=== PATIENT | female | born 1970 | race Caucasian/White ===

== ENCOUNTER 2016-10-20 15:53 | Emergency (ER) | payer BC ==
[2016-10-20 16:08] VITALS: BP 89/45
--- NOTE | 2016-10-20 16:32 | UC ---
Complaint Female HPI - HPI Summary HPI Summary: FREQUENT URINATION AND DISCOMFORT FOR THREE DAYS, TODAY DEVELOPED BLOOD IN URINE. NO FEVER. NO BACK PAIN. - History Of Current Complaint Chief Complaint: UCGI Stated Complaint: UTI COMPLAINT Time Seen by Provider: 10/20/16 16:05 Hx Obtained From: Patient Hx Last Menstrual Period: ended 10/18/16 Onset/Duration: Gradual Onset, Lasting Days, Worse Since - TODAY Severity Initially: Mild Severity Currently: Severe Character: Dull, Burning, Cramping Aggravating Factor(s): Urination - Risk Factors Ovarian Torsion Risk Factor: Negative - Allergies/Home Medications Allergies/Adverse Reactions: Allergies Allergy/AdvReac Type Severity Reaction Status Date / Time Sulfamethoxazole Allergy Severe "MUSCLE Verified 10/20/16 16:27 w/Trimethoprim SEIZURE [From Bactrim] REACTION" Penicillins Allergy Intermediate Hives Unverified 10/20/16 16:09 Home Medications: Home Medications [place]-3 Fatty Acids [Fish Oil] 10/20/16 [History Confirmed 10/20/16] PMH/Surg Hx/FS Hx/Imm Hx Previously Healthy: Yes - Surgical History Surgical History: Yes Surgery Procedure, Year, and Place: foot fracture. tubal ligation x2 - Family History Known Family History: Negative: Renal Disease - Social History Occupation: Employed Full-time Lives: With Family Alcohol Use: None Substance Use Type: None Smoking Status (MU): Never Smoked Tobacco Review of Systems Constitutional: Negative Skin: Negative Eyes: Negative ENT: Negative Respiratory: Negative Cardiovascular: Negative Gastrointestinal: Negative Genitourinary: Dysuria, Hematuria, Frequency, Urgency Motor: Negative Neurovascular: Negative Musculoskeletal: Negative Neurological: Negative Psychological: Negative All Other Systems Reviewed And Are Negative: Yes Physical Exam Triage Information Reviewed: Yes Appearance: Well-Appearing, Well-Nourished, Pain Distress Vital Signs: Initial Vital Signs Temp 97.4 F 10/20/16 16:05 Pulse 61 10/20/16 16:05 Resp 12 10/20/16 16:05 BP 89/45 10/20/16 16:05 Pulse Ox 98 10/20/16 16:05 Vital Signs Reviewed: Yes Eye Exam: Normal ENT Exam: Normal ENT: Positive: Normal ENT inspection, TMs normal Dental Exam: Normal Neck exam: Normal Respiratory Exam: Normal Respiratory: Positive: Chest non-tender, Lungs clear, Normal breath sounds Cardiovascular Exam: Normal Cardiovascular: Positive: RRR, No Murmur Abdominal Exam: Normal Abdomen Description: Positive: Nontender, No Organomegaly. Negative: CVA Tenderness (R), CVA Tenderness (L) Musculoskeletal Exam: Normal Neurological Exam: Normal Psychological Exam: Normal Skin Exam: Normal Complaint Female Dx - Differential Dx/Diagnosis Differential Diagnosis/HQI/PQRI: Cervicitis, Urinary Tract Infection Provider Diagnoses: HEMATURIA; URINARY TRACT INFECTION Discharge - Discharge Plan Condition: Stable Disposition: HOME Prescriptions: Ciprofloxacin TAB* [Cipro 500 MG TAB*] 500 mg PO BID #10 tab Phenazopyridine TAB* [Pyridium 100 mg TAB*] 100 mg PO TID #15 tab Patient Education Materials: Ciprofloxacin (By mouth), Urinary Tract Infection in Women (ED) Referrals: Piedad OCAMPO,Raji Rodriguez [Primary Care Provider] -
== END 2016-10-20 16:30 | disposition home or self-care (01) ==
LOC: UCEAST 15:53
DX: R31.9 Hematuria, unspecified (principal); N39.0 Urinary tract infection, site not specified
CPT/HCPCS: 81003; 87077; 87086; 87186; 99212; G0463

== ENCOUNTER 2017-11-14 05:02 | Emergency (ER) | payer BC ==
[2017-11-14] MEDS ORDERED: Phenazopyridine TAB* 100 MG PO ONE (05:28)
--- NOTE | 2017-11-14 05:36 | ED ---
GI/ HPI - HPI Summary HPI Summary: This is taiwo Reyes documenting for attending Priscila Bell MD. This patient is a 47 year old F presenting to [facility] with a chief complaint of hematuria since this morning. The patient rates the pain 3/10 in severity. Patient reports increased urgency and dysuria. Patient denies pain, n/v/d, back pain, and fever. - History of Current Complaint Chief Complaint: EDUrogenitalProblems Time Seen by Provider: 11/14/17 05:22 Stated Complaint: POSS UTI Hx Obtained From: Patient Hx Last Menstrual Period: ended 10/18/16 Onset/Duration: Still Present Timing: Constant Severity: Moderate Current Severity: Moderate Pain Intensity: 3 Location of Pain: Diffuse Associated Signs and Symptoms: Positive: Hematuria - Allergy/Home Medications Allergies/Adverse Reactions: Allergies Allergy/AdvReac Type Severity Reaction Status Date / Time cyclobenzaprine Allergy Muscle Ache Verified 11/14/17 05:09 Penicillins Allergy Hives Verified 11/14/17 05:09 sulfamethoxazole Allergy Muscle Ache Verified 11/14/17 05:09 [From Bactrim] tramadol Allergy Muscle Ache Verified 11/14/17 05:09 trimethoprim [From Bactrim] Allergy Muscle Ache Verified 11/14/17 05:09 PMH/Surg Hx/FS Hx/Imm Hx Endocrine/Hematology History: Denies: Hx Diabetes, Hx Thyroid Disease Cardiovascular History: Denies: Hx Hypertension Respiratory History: Denies: Hx Asthma, Hx Chronic Obstructive Pulmonary Disease (COPD) GI History: Denies: Hx Ulcer - Surgical History Surgery Procedure, Year, and Place: foot fracture. tubal ligation x2 Infectious Disease History: No Infectious Disease History: Denies: Hx Clostridium Difficile, Hx Hepatitis, Hx Human Immunodeficiency Virus (HIV), Hx of Known/Suspected MRSA, Hx Shingles, Hx Tuberculosis, Traveled Outside the [place] in Last 30 Days - Family History Known Family History: Negative: Renal Disease - Social History Alcohol Use: None Substance Use Type: Reports: None Smoking Status (MU): Never Smoked Tobacco Review of Systems Negative: Fever Negative: Vomiting, Diarrhea, Nausea Positive: dysuria, hematuria. Negative: flank pain All Other Systems Reviewed And Are Negative: Yes Physical Exam - Summary Physical Exam Summary: VITAL SIGNS: Reviewed. GENERAL: Patient is a well-developed and nourished femalewho is lying comfortable in the stretcher. Patient is not in any acute respiratory distress. HEAD AND FACE: No signs of trauma. No ecchymosis, hematomas or skull depressions. No sinus tenderness. EYES: PERRLA, EOMI x 2, No injected conjunctiva, no nystagmus. EARS: Hearing grossly intact. Ear canals and tympanic membranes are within normal limits. MOUTH: Oropharynx within normal limits. NECK: Supple, trachea is midline, no adenopathy, no JVD, no carotid bruit, no c- spine tenderness, neck with full ROM. CHEST: Symmetric, no tenderness at palpation LUNGS: Clear to auscultation bilaterally. No wheezing or crackles. CVS: Regular rate and rhythm, S1 and S2 present, no murmurs or gallops appreciated. ABDOMEN: Soft, TTP in the suprapubic region. No signs of distention. No rebound no guarding, and no masses palpated. Bowel sounds are normal. EXTREMITIES: FROM in all major joints, no edema, no cyanosis or clubbing. NEURO: Alert and oriented x 3. No acute neurological deficits. Speech is normal and follows commands. SKIN: Dry and warm Triage Information Reviewed: Yes Vital Signs On Initial Exam: Initial Vitals Temp Pulse Resp BP Pulse Ox 97.0 F 59 18 121/47 99 11/14/17 05:05 11/14/17 05:05 11/14/17 05:05 11/14/17 05:05 11/14/17 05:05 Vital Signs Reviewed: Yes Diagnostics - Vital Signs Vital Signs Temp Pulse Resp BP Pulse Ox 11/14/17 05:05 97.0 F 59 18 121/47 99 - Laboratory Lab Statement: Any lab studies that have been ordered have been reviewed, and results considered in the medical decision making process. GIGU Course/Dx - Course Assessment/Plan: This patient is a 47 year old F presenting to [facility] with a chief complaint of hematuria since this morning. The patient rates the pain 3/ 10 in severity. Patient reports increased urgency and dysuria. Patient denies pain, n/v/d, back pain, and fever. UA was positive for UTI. In the ED course the patient was given bactrim and pyridium. Patient will be discharged with prescription for bactrim and follow up from PCP. The patient is agreeable with this plan. - Diagnoses Provider Diagnoses: UTI (urinary tract infection) Discharge - Sign-Out/Discharge Documenting (check all that apply): Patient Departure - Discharge Plan Condition: Stable Disposition: HOME Prescriptions: Phenazopyridine TAB* [Pyridium 100 mg TAB*] 100 mg PO TID PRN #7 tab PRN Reason: Pain Sulfamethox/Trimethoprim DS* [Bactrim DS 800/160 TAB*] 1 tab PO BID #10 tab Patient Education Materials: Urinary Tract Infection in Women (ED) Referrals: Kristel Zurita [Primary Care Provider] - 2 Days Additional Instructions: RETURN TO THE EMERGENCY DEPARTMENT FOR CHANGING OR WORSENING SYMPTOMS Attestation Statement Scribe Attestation: This is taiwo Reyes documenting for attending Priscila Bell MD. User Type: Provider with Scribe Provider Attestation: The documentation recorded by the scribe accurately reflects the service I personally performed and the decisions made by me.
[2017-11-14 05:50] LABS: Urine Appearance Cloudy; Urine Blood 3+ (Negative); Urine Color Yellow; Urine Ketones Negative (Negative); Urine Protein 1+(30 mg/dL) (Negative); Urine Red Blood Cell 3+(>10/hpf) (Absent); Urine Specific Gravity 1.018 (1.010-1.030); Urine Urobilinogen Negative (Negative); Urine White Blood Cell 3+(>20/hpf) (Absent)
[2017-11-14] MEDS ORDERED: Sulfamethox/Trimethoprim DS 800/160* TAB PO ONE (05:54)
[2017-11-14 06:08] VITALS: BP 98/55
--- NOTE | 2017-11-16 18:42 | PN ---
Progress Note - Progress Note Date of Service: 11/16/17 Note: Patient's urine culture grew Escherichia coli greater than 100,000. Patient placed on Bactrim. Will wait for final culture presents today.
--- NOTE | 2017-11-17 08:23 | PN ---
Progress Note - Progress Note Date of Service: 11/14/17 Note: Pt. seen in ER 11/14 and dx with a UTI. She was placed on bactrim. Urine culture today is growing >100,000 e. coli susceptible to bactrim. No change in treatment needed at this time.
== END 2017-11-14 06:08 | disposition home or self-care (01) ==
LOC: ED 05:02
DX: N39.0 Urinary tract infection, site not specified (principal); R31.9 Hematuria, unspecified; Z88.0 Allergy status to penicillin
CPT/HCPCS: 81003; 81015; 87077; 87086; 87186; 99282; A9270-GY

== ENCOUNTER 2018-01-19 07:53 | Emergency (ER) | payer BC ==
[2018-01-19 07:59] VITALS: BP 102/31
--- NOTE | 2018-01-19 08:27 | UC ---
Complaint Female HPI - HPI Summary HPI Summary: Started feeling faint dysuria last night, then this morning noted blood in urine and dramatically worsened symptoms. Has hx of UTIs, this feels like UTIs she's had in the past. - History Of Current Complaint Chief Complaint: UCGU Stated Complaint: UTI Time Seen by Provider: 01/19/18 08:03 Hx Obtained From: Patient Hx Last Menstrual Period: ended 10/18/16 ?: No Onset/Duration: Gradual Onset, Lasting Hours Timing: Constant Severity Initially: Moderate Severity Currently: Moderate Pain Intensity: 7 Character: Burning, Cramping Aggravating Factor(s): Urination Alleviating Factor(s): Nothing Associated Signs And Symptoms: Positive: Negative - Allergies/Home Medications Allergies/Adverse Reactions: Allergies Allergy/AdvReac Type Severity Reaction Status Date / Time cyclobenzaprine Allergy Muscle Ache Verified 01/19/18 07:59 Penicillins Allergy Hives Verified 01/19/18 07:59 sulfamethoxazole Allergy Muscle Ache Verified 01/19/18 07:59 [From Bactrim] tramadol Allergy Muscle Ache Verified 01/19/18 07:59 trimethoprim [From Bactrim] Allergy Muscle Ache Verified 01/19/18 07:59 PMH/Surg Hx/FS Hx/Imm Hx Previously Healthy: Yes - Surgical History Surgical History: Yes Surgery Procedure, Year, and Place: foot fracture. tubal ligation x2 - Family History Known Family History: Negative: Renal Disease - Social History Occupation: Employed Full-time Alcohol Use: None Substance Use Type: None Smoking Status (MU): Never Smoked Tobacco Review of Systems Constitutional: Negative Skin: Negative Eyes: Negative ENT: Negative Respiratory: Negative Cardiovascular: Negative Gastrointestinal: Negative Genitourinary: Dysuria, Hematuria, Frequency, Urgency Motor: Negative Neurovascular: Negative Musculoskeletal: Negative Neurological: Negative Psychological: Negative Is Patient Immunocompromised?: No All Other Systems Reviewed And Are Negative: Yes Physical Exam Triage Information Reviewed: Yes Appearance: Well-Appearing, No Pain Distress, Well-Nourished Vital Signs: Initial Vital Signs Temp 97.8 F 01/19/18 07:56 Pulse 57 01/19/18 07:56 Resp 18 01/19/18 07:56 BP 102/31 01/19/18 07:56 Pulse Ox 100 01/19/18 07:56 Vital Signs Reviewed: Yes Eye Exam: Normal Eyes: Positive: Conjunctiva Clear ENT Exam: Normal ENT: Positive: Normal ENT inspection, Hearing grossly normal, Pharynx normal, TMs normal Neck exam: Normal Neck: Positive: Supple, Nontender, No Lymphadenopathy Respiratory Exam: Normal Respiratory: Positive: Chest non-tender, Lungs clear, Normal breath sounds, No respiratory distress Cardiovascular Exam: Normal Cardiovascular: Positive: RRR, No Murmur Abdomen Description: Negative: CVA Tenderness (R), CVA Tenderness (L) Musculoskeletal Exam: Normal Musculoskeletal: Positive: Strength Intact Neurological Exam: Normal Psychological Exam: Normal Skin Exam: Normal Complaint Female Dx - Differential Dx/Diagnosis Provider Diagnoses: UTI Discharge - Sign-Out/Discharge Documenting (check all that apply): Patient Departure All imaging exams completed and their final reports reviewed: No Studies - Discharge Plan Condition: Stable Disposition: HOME Prescriptions: Nitrofurantoin Macrocrystals* [Macrodantin 100 mg*] 100 mg PO BID #10 cap Phenazopyridine 200 mg (NF) [Pyridium 200 MG tab *] 200 mg PO TID #3 tab Patient Education Materials: Urinary Tract Infection in Women (ED) Referrals: Kristel Zurita [Primary Care Provider] - Additional Instructions: Please call or come back if you do not have significant improvement within the next 48 hours. - Billing Disposition and Condition Condition: STABLE Disposition: Home
== END 2018-01-19 08:36 | disposition home or self-care (01) ==
LOC: UCEAST 07:53
DX: N39.0 Urinary tract infection, site not specified (principal); Z88.6 Allergy status to analgesic agent; Z88.1 Allergy status to other antibiotic agents; Z88.0 Allergy status to penicillin; Z88.2 Allergy status to sulfonamides
CPT/HCPCS: 81003; 87086; 99212; G0463

== ENCOUNTER 2018-01-20 21:06 | Emergency (ER) | payer BC ==
--- NOTE | 2018-01-20 22:47 | ED ---
Allergic Reaction/Systemic - HPI Summary HPI Summary: 47 y/o female presents to the ED c/o diffuse muscle tightness and pain diffusely over her body, most severely in her quads and chest starting this morning. Pt describes chest pain as "someone taking an ice pick to her chest". Dx UTI yesterday, given abx at [facility] yesterday. Urinary symptoms - blood in urine and burning starting yesterday, with noted relief after taking abx today. Pt believes the muscle tightness/soreness can be attributed to abx, for which she has had similar reactions to in the past. Associated sx: pt developed [place] and pain at eyes starting this morning at work, fevers, chills, decreased appetite today. - History of Current Complaint Chief Complaint: EDAllergicReaction Time Seen by Provider: 01/20/18 22:38 Hx Obtained From: Patient Hx Last Menstrual Period: ended 10/18/16 Onset/Duration: Started hours ago, Still Present Timing: Constant Pain Intensity: 9 Pain Scale Used: 0-10 Numeric Location: Diffuse - most @ quads and chest Aggravating Factor(s): Nothing Alleviating Factor(s): Nothing Associated Signs And Symptoms: Positive: Chest Pain, Other: - fever, chills, S[place] , pain at eyes, decreased appetite - Allergies/Home Medications Allergies/Adverse Reactions: Allergies Allergy/AdvReac Type Severity Reaction Status Date / Time cyclobenzaprine Allergy Muscle Ache Verified 01/20/18 21:14 Penicillins Allergy Hives Verified 01/20/18 21:14 sulfamethoxazole Allergy Muscle Ache Verified 01/20/18 21:14 [From Bactrim] tramadol Allergy Muscle Ache Verified 01/20/18 21:14 trimethoprim [From Bactrim] Allergy Muscle Ache Verified 01/20/18 21:14 PMH/Surg Hx/FS Hx/Imm Hx Previously Healthy: No Endocrine/Hematology History: Denies: Hx Diabetes, Hx Thyroid Disease Cardiovascular History: Denies: Hx Hypertension Respiratory History: Denies: Hx Asthma, Hx Chronic Obstructive Pulmonary Disease (COPD) GI History: Denies: Hx Ulcer - Surgical History Surgery Procedure, Year, and Place: foot fracture. tubal ligation x2 Infectious Disease History: No Infectious Disease History: Denies: Hx Clostridium Difficile, Hx Hepatitis, Hx Human Immunodeficiency Virus (HIV), Hx of Known/Suspected MRSA, Hx Shingles, Hx Tuberculosis, Traveled Outside the [place] in Last 30 Days - Family History Known Family History: Negative: Renal Disease - Social History Alcohol Use: None Hx Substance Use: No Substance Use Type: Reports: None Hx Tobacco Use: No Smoking Status (MU): Never Smoked Tobacco Review of Systems Positive: Fever, Chills Eyes: Other - pain at eyes ENT: Negative Cardiovascular: Negative Respiratory: Negative Positive: Other - decreased appetite Positive: burning, other - blood in urine Positive: Myalgia - muscles stiffness and soreness diffusely Skin: Negative Positive: Headache Psychological: Normal All Other Systems Reviewed And Are Negative: Yes Physical Exam - Summary Physical Exam Summary: Appearance: Well-appearing, Well-nourished, lying in bed comfortably Skin: Warm, dry, no obvious rash Eyes: sclera anicteric, no conjunctival pallor ENT: mucous membranes moist, pharynx appears normal Neck: Supple, nontender Respiratory: Clear to auscultation, no signs of respiratory distress Cardiovascular: Normal S1, S2. No murmurs. Normal distal pulses in tibial and radial bilaterally. Abdomen: Soft, nontender, normal active bowel sounds present Musculoskeletal: Normal, Strength/ROM Intact Neurological: A&Ox3, awake and alert, mentation is normal, speech is fluent and appropriate Psychiatric: affect is normal, does not appear anxious or depressed Triage Information Reviewed: Yes Vital Signs On Initial Exam: Initial Vitals Temp Pulse Resp BP Pulse Ox 100.0 F 82 16 121/62 97 01/20/18 21:10 01/20/18 21:10 01/20/18 21:10 01/20/18 21:10 01/20/18 21:10 Vital Signs Reviewed: Yes Diagnostics - Vital Signs Vital Signs Temp Pulse Resp BP Pulse Ox 01/20/18 21:10 100.0 F 82 16 121/62 97 - Laboratory Result Diagrams: 01/20/18 22:59 01/20/18 22:59 Lab Statement: Any lab studies that have been ordered have been reviewed, and results considered in the medical decision making process. Allergic Reaction Course/Dx - Course Assessment/Plan: Pt c/o diffuse muscle tightness and soreness starting this morning, possible allergic reaction to abx given yesterday for UTI. Urinalysis done is consistent with UTI. As symptoms began after initiation of Macrobid will assume that the Macrobid is causing some type of systemic reaction with her. Laboratory studies are unremarkable though. We'll substitute Keflex as her prior urine isolate have been sensitive to that antibiotic. - Diagnoses Provider Diagnoses: Drug allergy, antibiotic Discharge - Sign-Out/Discharge Documenting (check all that apply): Patient Departure - Discharge Plan Condition: Improved Disposition: HOME Prescriptions: Cephalexin CAP* [Keflex CAP*] 500 mg PO TID #6 cap Patient Education Materials: Antibiotic Medication Allergy (ED) Referrals: Kristel Zurita [Primary Care Provider] - - Billing Disposition and Condition Condition: IMPROVED Disposition: Home - Attestation Statements Document Initiated by Scribe: Yes Documenting Scribe: Mani Manriquez Provider For Whom Scribe is Documenting (Include Credential): Faizan Peres MD Scribe Attestation: Mani Angel, scribed for Faizan Peres MD on 01/24/18 at 1834. Scribe Documentation Reviewed: Yes Provider Attestation: The documentation as recorded by the Mani maravilla accurately reflects the service I personally performed and the decisions made by me, Faizan Peres MD
[2018-01-20] MEDS ORDERED: Cephalexin CAP* 500 MG PO ONE (22:50)
[2018-01-20] MEDS ORDERED: Ibuprofen TAB* 600 MG PO ONE (22:51)
[2018-01-20 23:06] LABS: ABS Basophils 0 10^3/ul (0-0.2); ABS Eosinophils 0 10^3/ul (0-0.6); ABS Lymphocytes 0.5 10^3/ul (1.0-4.8); ABS Monocytes 0.7 10^3/ul (0-0.8); ABS Neutrophils 8.5 10^3/ul (1.5-7.7); ABS Nucleated RBC 0 10^3/ul; Eosinophil % 0.5 % (0-6); Hematocrit 40 % (35-47); Hemoglobin 13.7 g/dl (12.0-16.0); Lymphocyte % 5.2 % (25-47); Mean Corpuscular HGB Conc 34 g/dl (31-36); Mean Corpuscular Hemoglobin 30 pg (27-31); Mean Corpuscular Volume 89 fL (80-97); Mean Platelet Volume 8.9 um3 (7.4-10.4); Nucleated Red Blood Cells % 0; Platelet Count 208 10^3/ul (150-450); Red Blood Count 4.52 10^6/ul (4.00-5.40); Red Cell Distribution Width 15 % (10.5-15); White Blood Count 9.7 10^3/ul (3.5-10.8)
[2018-01-21 00:36] VITALS: BP 105/49
== END 2018-01-21 00:53 | disposition home or self-care (01) ==
LOC: ED 21:06
DX: T36.95XA Adverse effect of unspecified systemic antibiotic, initial encounter (principal); R07.9 Chest pain, unspecified; R50.9 Fever, unspecified; R51 Headache; Z88.0 Allergy status to penicillin; Y92.9 Unspecified place or not applicable
CPT/HCPCS: 36415; 80048; 82550; 85025; 99283; A9270-GY

== ENCOUNTER 2019-06-01 10:24 | Emergency (ER) | payer BC ==
[2019-06-01 10:46] LABS: ABS Eosinophils 0.7 10^3/ul (0-0.6); ABS Lymphocytes 1.9 10^3/ul (1.0-4.8); ABS Monocytes 0.9 10^3/ul (0-0.8); ABS Neutrophils 5.9 10^3/ul (1.5-7.7); Eosinophil % 7.1 %; Hematocrit 41 % (35-47); Hemoglobin 14.1 g/dL (12.0-16.0); Lymphocyte % 20.2 %; Mean Corpuscular HGB Conc 34 g/dL (31-36); Mean Corpuscular Hemoglobin 31 pg (27-31); Mean Corpuscular Volume 91 fL (80-97); Mean Platelet Volume 8.7 fL (7.4-10.4); Platelet Count 208 10^3/uL (150-450); Red Blood Count 4.51 10^6 /uL (3.70-4.87); Red Cell Distribution Width 13 % (10-15); White Blood Count 9.4 10^3/uL (3.5-10.8)
[2019-06-01 10:57] LABS: INR 1.17 (0.82-1.09)
[2019-06-01 11:10] LABS: Albumin 4.1 g/dL (3.2-5.2); Albumin/Globulin Ratio 1.5 (1-3); BUN/Creatinine Ratio 28.6 (8-20); EGFR African American 80.2 (>60); EGFR Non-African American 66.3 (>60); Globulin 2.7 g/dL (2-4); Total Bilirubin 0.5 mg/dL (0.2-1.0); Total Protein 6.8 g/dL (6.4-8.9)
[2019-06-01 11:11] LABS: Troponin I 0.01 ng/mL (<0.03)
--- NOTE | 2019-06-01 12:29 | ED ---
HPI Chest Pain - HPI Summary HPI Summary: This patient is a 49 y/o female presenting to [facility] c/o intermittent chest pain x3 days. Patient reports 3 days ago she began to experience mid sternal chest pain, described as sharp and tight , intermittently every other hour. She notes the next day (2 days ago) she felt well during the day and in the evening she began to have chest pain every 2 hours but then it resolved. Pt states her chest pain that day came back again but intermittently every 1 hour. Patient reports last night her chest pain came on again and lasted all night and has not resolved since then. Her chest pain is not aggravated with deep breaths, arm movement, or ambulation. Denies associated shortness of breath, nausea, vomiting, dizziness, lightheadedness. Patient reports she worked out today and did bikes for about 1 hour. She states no chest pain while working out, however she felt chest pain after stopping her work out. Denies any PMHx. Denies hx of DM, dyslipidemia, cardiac disease, HTN. Denies tobacco, alcohol, or drug use. FHx: no [place] at her age. Home Medications Medication Instructions Recorded Confirmed Type NK [No Home Medications Reported] 06/01/19 06/01/19 History - History of Current Complaint Chief Complaint: EDChestPainROMI Time Seen by Provider: 06/01/19 12:10 Hx Obtained From: Patient Hx Last Menstrual Period: ended 10/18/16 Onset/Duration: Started Days Ago, Still Present Timing: Intermittent, Lasting Days Current Severity: Severe Pain Intensity: 8 Pain Scale Used: 0-10 Numeric Chest Pain Location: Mid Sternal Chest Pain Radiates: Yes Chest Pain Radiates To:: Back Character: Sharp/Stabbing - sharp, Tightness Aggravating Factor(s): Nothing Alleviating Factor(s): Nothing Associated Signs and Symptoms: Positive: Chest Pain. Negative: Dizziness, Shortness of Breath, Fever, Lightheadedness, Nausea, Vomiting - Allergy/Home Medications Allergies/Adverse Reactions: Allergies Allergy/AdvReac Type Severity Reaction Status Date / Time cyclobenzaprine Allergy Muscle Ache Verified 06/01/19 10:35 Penicillins Allergy Hives Verified 06/01/19 10:35 sulfamethoxazole Allergy Muscle Ache Verified 06/01/19 10:35 [From Bactrim] tramadol Allergy Muscle Ache Verified 06/01/19 10:35 trimethoprim [From Bactrim] Allergy Muscle Ache Verified 06/01/19 10:35 Home Medications: Home Medications NK [No Home Medications Reported] 06/01/19 [History Confirmed 06/01/19] PMH/Surg Hx/FS Hx/Imm Hx Endocrine/Hematology History: Denies: Hx Diabetes, Hx Thyroid Disease Cardiovascular History: Denies: Hx Hypertension Respiratory History: Denies: Hx Asthma, Hx Chronic Obstructive Pulmonary Disease (COPD) GI History: Denies: Hx Ulcer - Surgical History Surgery Procedure, Year, and Place: foot fracture. tubal ligation x2 Infectious Disease History: No Infectious Disease History: Denies: Hx Clostridium Difficile, Hx Hepatitis, Hx Human Immunodeficiency Virus (HIV), Hx of Known/Suspected MRSA, Hx Shingles, Hx Tuberculosis, Traveled Outside the [place] in Last 30 Days - Family History Known Family History: Negative: Cardiac Disease - no [place] at her age, Renal Disease - Social History Alcohol Use: None Hx Substance Use: No Substance Use Type: Reports: None Hx Tobacco Use: No Smoking Status (MU): Never Smoked Tobacco Review of Systems Negative: Fever Positive: Chest Pain Negative: Shortness Of Breath Negative: Vomiting, Nausea Neurological/Mental Status: Other - NEGATIVE: dizziness, lightheadedness All Other Systems Reviewed And Are Negative: Yes Physical Exam - Summary Physical Exam Summary: VITAL SIGNS: Reviewed. GENERAL: Patient is a well-developed and nourished female who is lying comfortable in the stretcher. Patient is not in any acute respiratory distress. HEAD AND FACE: No signs of trauma. No ecchymosis, hematomas or skull depressions. No sinus tenderness. EYES: PERRLA, EOMI x 2, No injected conjunctiva, no nystagmus. EARS: Hearing grossly intact. Ear canals and tympanic membranes are within normal limits. MOUTH: Oropharynx within normal limits. NECK: Supple, trachea is midline, no adenopathy, no JVD, no carotid bruit, no c- spine tenderness, neck with full ROM. CHEST: Symmetric, no tenderness at palpation LUNGS: Clear to auscultation bilaterally. No wheezing or crackles. CVS: Regular rate and rhythm, S1 and S2 present, no murmurs or gallops appreciated. ABDOMEN: Soft, non-tender. No signs of distention. No rebound, no guarding, and no masses palpated. Bowel sounds are normal. EXTREMITIES: FROM in all major joints, no edema, no cyanosis or clubbing. NEURO: Alert and oriented x 3. No acute neurological deficits. Speech is normal and follows commands. SKIN: Dry and warm Triage Information Reviewed: Yes Vital Signs On Initial Exam: Initial Vitals Temp Pulse Resp BP Pulse Ox 97.5 F 52 14 124/71 100 06/01/19 10:27 06/01/19 10:27 06/01/19 10:27 06/01/19 10:27 06/01/19 10:27 Vital Signs Reviewed: Yes Procedures - Sedation Patient Received Moderate/Deep Sedation with Procedure: No Diagnostics - Vital Signs Vital Signs Temp Pulse Resp BP Pulse Ox 06/01/19 11:48 98.8 F 53 14 101/46 97 06/01/19 10:27 97.5 F 52 14 124/71 100 - Laboratory Lab Results: Lab Results 06/01/19 06/01/19 06/01/19 Range/Units 10:37 10:37 10:37 WBC 9.4 (3.5-10.8) 10^3/uL RBC 4.51 (3.70-4.87) 10^6 /uL Hgb 14.1 (12.0-16.0) g/dL Hct 41 (35-47) % MCV 91 (80-97) fL MCH 31 (27-31) pg MCHC 34 (31-36) g/dL RDW 13 (10-15) % Plt Count 208 (150-450) 10^3/uL MPV 8.7 (7.4-10.4) fL Neut % (Auto) 62.8 % Lymph % (Auto) 20.2 % [place] % (Auto) 9.5 % Eos % (Auto) 7.1 % Baso % (Auto) 0.4 % Absolute Neuts (auto) 5.9 (1.5-7.7) 10^3/ul Absolute Lymphs (auto) 1.9 (1.0-4.8) 10^3/ul Absolute Monos (auto) 0.9 H (0-0.8) 10^3/ul Absolute Eos (auto) 0.7 H (0-0.6) 10^3/ul Absolute Basos (auto) 0.0 (0-0.2) 10^3/ul Absolute Nucleated RBC 0.0 10^3/ul Nucleated RBC % 0.0 INR (Anticoag Therapy) 1.17 H (0.82-1.09) Sodium 136 (135-145) mmol/L Potassium 4.0 (3.5-5.0) mmol/L Chloride 104 (101-111) mmol/L Carbon Dioxide 26 (22-32) mmol/L Anion Gap 6 (2-11) mmol/L BUN 26 H (6-24) mg/dL Creatinine 0.91 (0.51-0.95) mg/dL Est GFR ( Amer) 80.2 (>60) Est GFR (Non-Af Amer) 66.3 (>60) BUN/Creatinine Ratio 28.6 H (8-20) Glucose 107 H (70-100) mg/dL Calcium 10.0 (8.6-10.3) mg/dL Total Bilirubin 0.50 (0.2-1.0) mg/dL AST 22 (13-39) U/L ALT 19 (7-52) U/L Alkaline Phosphatase 72 (34-104) U/L Troponin I 0.01 (<0.03) ng/mL Total Protein 6.8 (6.4-8.9) g/dL Albumin 4.1 (3.2-5.2) g/dL Globulin 2.7 (2-4) g/dL Albumin/Globulin Ratio 1.5 (1-3) Result Diagrams: 06/01/19 10:37 06/01/19 10:37 Lab Statement: Any lab studies that have been ordered have been reviewed, and results considered in the medical decision making process. - Radiology Chest XR Radiology Interpretation Completed By: Radiologist Summary of Radiographic Findings: IMPRESSION: No active cardiopulmonary disease. Dr. Shultz has reviewed this report. - EKG 1027 Cardiac Rate: Bradycardia - at 55 bpm EKG Rhythm: Sinus Bradycardia Summary of EKG Findings: EKG at 10:27 shows sinus bradycardia at a rate of [address] elevations. This EKG was reviewed and interpreted by ED physician. Re-Evaluation - Re-Evaluation First Eval Re-Evaluation Time: 13:25 Comment: Reviewed results with patient. She is advised to follow up with her PCP. Chest Pain Course/Dx - Course Assessment/Plan: This patient is a 49 y/o female presenting to [facility] c/o intermittent chest pain x3 days. Patient reports 3 days ago she began to experience mid sternal chest pain, described as sharp and tight , intermittently every other hour. She notes the next day (2 days ago) she felt well during the day and in the evening she began to have chest pain every 2 hours but then it resolved. Pt states her chest pain that day came back again but intermittently every 1 hour. Patient reports last night her chest pain came on again and lasted all night and has not resolved since then. Her chest pain is not aggravated with deep breaths, arm movement, or ambulation. Denies associated shortness of breath, nausea, vomiting, dizziness, lightheadedness. Patient reports she worked out today and did bikes for about 1 hour. She states no chest pain while working out, however she felt chest pain after stopping her work out. Denies any PMHx. Denies hx of DM, dyslipidemia, cardiac disease, HTN. Denies tobacco, alcohol, or drug use. FHx: no [place] at her age. She was given Ibuprofen for pain. In the ED course the patient was placed in a surveillance system monitor. Blood test w/o a significant abnormality except for BUN 26, glucose 107. CXR impression: No acute cardiopulmonary disease. Patient reports that all symptoms have resolved. Patient Heart score is: 1 therefore, low suspicion for CAD. Patient is not hypoxic or tachycardic. Wells criteria 0 . Therefore, no suspicion for PE. Patient has no abdominal bruit thus no suspicion for AAA. Patients pain does not radiate to the back and pain has resolved thus low suspicion for aortic dissection. I discussed all the findings and test results with the patient. Patient was instructed to return to the emergency room immediately if any of the symptoms return or worsen. Patient understands and agrees. Plan of care was discussed with the patient and patient understands and agrees. All questions were answered at patient satisfaction. There were no further complaints or concerns. PE before discharge: CVS: S1 and S2 present. No murmurs appreciated. Abdominal exam before discharge: Soft, non-tender. No signs of distention. No rebound no guarding, and no masses palpated. Bowel sounds are normal. Patient is alert and oriented x 3. Patient is hemodynamically stable. - Chest Pain Differential Diagnosis/HQI/PQRI: Acute [place], ACS, Angina, CHF, Chest Wall, GI Disease, Lower Respiratory Infection, Pulmonary Edema - Diagnoses Provider Diagnoses: Atypical chest pain Discharge ED - Sign-Out/Discharge Documenting (check all that apply): Patient Departure - Discharge home - Discharge Plan Condition: Stable Disposition: HOME Patient Education Materials: Chest Pain (ED) Referrals: Kristel Zurita [Primary Care Provider] - Additional Instructions: FOLLOW UP WITH YOUR PRIMARY CARE PROVIDER IN 2-3 DAYS. RETURN TO THE ED FOR ANY NEW OR WORSENING SYMPTOMS. - Billing Disposition and Condition Condition: STABLE Disposition: Home - Attestation Statements Document Initiated by Josephibe: Yes Documenting Scribe: Nury Gama Provider For Whom Josephiblakia is Documenting (Include Credential): Milo Shultz MD Scribe Attestation: Nury Angel, scribed for Milo Shultz MD on 06/01/19 at 2050. Scribe Documentation Reviewed: Yes Provider Attestation: The documentation as recorded by the Nury maravilla accurately reflects the service I personally performed and the decisions made by me, Milo Shultz MD Status of Scribe Document: Viewed
[2019-06-01] MEDS ORDERED: Ibuprofen TAB* 800 MG PO ONE (12:35)
[2019-06-01 13:39] VITALS: BP 117/53
== END 2019-06-01 13:38 | disposition home or self-care (01) ==
LOC: ED 10:24
DX: R07.89 Other chest pain (principal); Z88.0 Allergy status to penicillin; Z88.2 Allergy status to sulfonamides
CPT/HCPCS: 36415; 71046; 80053; 84484; 85025; 85610; 93005; 99283; A9270-GY